=== PATIENT | female | born 1945 ===

== ENCOUNTER 2023-03-07 09:13 | Day surgery (SDC) | payer OTHER ==
[~2023-03-07 09:13] MED LIST: HYDROCHLOROTHIA25 MG PO; LIPITOR40 M1 PO; TIROSINT25 MCG PO
[2023-03-07] MEDS ORDERED: COLACE100 MG PO (12:03)
[2023-03-07] MEDS ORDERED: TRAM1TAB98 PO (12:03)
[2023-03-07] MEDS ORDERED: NEURONTIN300 MG PO (12:03)
== END 2023-03-07 18:25 | disposition home or self-care (01) ==
LOC: CIR.AMB 09:13
PROVIDERS: ATTEND Surgery
DX: D12.9 Benign neoplasm of anus and anal canal (principal); A63.0 Anogenital (venereal) warts; K62.89 Other specified diseases of anus and rectum; K62.5 Hemorrhage of anus and rectum; K64.1 Second degree hemorrhoids; Z20.822 Contact with and (suspected) exposure to COVID-19